=== PATIENT | male | born 2000 | race Caucasian/White ===

== ENCOUNTER 2021-01-01 22:00 | Emergency (ER) | payer MEDICAID ==
[~2021-01-01] VITALS: Ht 154.9 cm; Wt 70.5 kg
[2021-01-01 22:39] VITALS: BP 149/78
== END 2021-01-01 23:07 | disposition home or self-care (01) ==
LOC: EMS 22:03
DX: B33.8 Other specified viral diseases (principal); Z76.0 Encounter for issue of repeat prescription; F17.210 Nicotine dependence, cigarettes, uncomplicated
CPT/HCPCS: 99281; Z7502